=== PATIENT | female | born 1960 | race Caucasian/White ===

== ENCOUNTER → 2022-09-03 14:45 | Outpatient (REF) | payer BC, SELFPAY ==
--- NOTE | 2022-09-03 14:52 | CA_ITS ---
Transthoracic Echocardiogram Patient (Last, First, Middle): Savanah Medrano, Gender: Female Date of : 1960 Age: 61 Procedure Date: 09/03/2022 Procedure Type: Transthoracic Echocardiogram Location: [facility] Height: 162.56 cm Weight: 45.36 kg BSA: 1.46 m2 Heart Rate: 78 bpm BP: 102 / 64 mmHg Tax Consultant: SB Referring MD: Jemma Juan NP Symptoms: PAF I48.0 Study Quality: Adequate ECG Rhythm: Sinus Conclusions: - The left ventricular systolic function is normal. The calculated ejection fraction is 61% by biplane method. - No obvious valvular pathology seen on this study. Findings Left Ventricle Normal left ventricular cavity size. There is normal left ventricular wall thickness. The left ventricular systolic function is normal. The calculated ejection fraction is 61% by biplane method. There is no evidence of regional wall motion abnormalities. Diastolic function is normal for age. LV peak GLS -21.9%. Right Ventricle Normal right ventricular cavity size and systolic function. Atria Both atria are normal in size. Aortic Valve There is a normal trileaflet aortic valve. There is no aortic valve stenosis. There is no aortic valve regurgitation. Mitral Valve The mitral valve appears normal. There is trace mitral valve regurgitation. There is no mitral valve stenosis. Pulmonic Valve The pulmonic valve is likely normal. Tricuspid Valve There is trace tricuspid valve regurgitation. There is no evidence of pulmonary hypertension. Great Vessels The asc aorta is normal in size. Venous The inferior vena cava is normal in size and collapses greater than 50% with inspiration. Pericardium/Pleural There is no evidence of pericardial effusion. Prior Study Comparison No prior study available for comparison. Recommendations, Care & Conclusions No obvious valvular pathology seen on this study. Measurements 2D Linear Measurements IVSd: 0.67 0.6-0.9/0.6-1.0 cm LVIDd: 4.24 3.9-5.3/4.2-5.9 cm LVIDd Index: 2.90 2.4-3.2/2.2-3.1 cm/m2 LVIDs: 2.99 2.0-3.6 cm LVPWd: 0.63 0.7-1.1 cm LA Diam: 2.90 2.7-3.8/3.0-4.0 cm LAIDs Index: 1.99 1.5-2.3 cm/m2 LV Mass: 97.75 67-162/88-224 g LV Mass Index: 66.95 43-95/49-115 g/m2 LVOT Diam: 2.10 3.0+(-)1.3 cm 2D Systolic Function EF 4C: 60.30 >55% EF 2C: 63.10 >55% EF BiP: 61.10 >55% Mitral Valve MV Pk E: 0.60 MV PK A: 0.44 MV Decel Time: 217.00 E/A: 1.40 E'Lateral: 6.31 E'Medial: 8.81 E/E' Med: 6.80 E/E' Lat: 9.40 PHT: 63.00 MVA PHT: 3.49 Decel Bell: 2.75 Aortic Valve AoV Pk Horacio: 0.89 AoV Pk Grad: 3.00 MARGOT: 3.14 LVOT LVOT Pk Horacio: 0.83 LVOT Mn Horacio: 0.58 LVOT VTI: 0.17 LVOT Pk Grad: 3.00 LVOT Mn Grad: 2.00 LVOT Diam: 2.10 LVOT Area: 3.46 Diastolic Function MV Pk E: 0.60 MV Pk A: 0.44 E/A: 1.40 E'Medial: 8.81 E/E' Med: 6.80 E' Laterial: 6.31 E/E' Lat: 9.40 Right Ventricle TAPSE (mm): 24.90 TVS' Horacio: 14.70 Tricuspid Valve TR Pk Horacio: 2.10 TR Pk Grad: 18.00 RA Press: 3.00 RVSP: 21.00 Great Vessels Aorta Sinus of Valsalva: 3.00 2.0-3.5 cm Ao Asc: 3.00 2.1-3.4 cm Pulmonary Valve PV Pk Horacio: 0.59 Peak PV Grad: 1.00 Updated in Other Vendor System with Status of Final Adonay Becker MD electronically signed on 09/04/2022 12:11:35 PM with status of Final
== END ==
LOC: HO.CARD 14:45
PROVIDERS: PCP Nurse Practitioner Adult Health; Visit Provider Nurse Practitioner Adult Health
DX: I48.0 Paroxysmal atrial fibrillation (principal)
CPT/HCPCS: 93306